=== PATIENT | female | born 1995 | race Caucasian/White ===

== ENCOUNTER 2018-08-24 12:00 | Emergency (ER) | payer OTHER, MEDICAID, SELFPAY ==
[2018-08-24 12:06] VITALS: BP 125/76; PULSE 99; RESP 18; TEMP 36.7; O2SAT 99; BMI 48.6
--- NOTE | 2018-08-24 12:31 | ED.BACK ---
HPI - Back Pain/Injury <Latrice Lopez, [employer]PER[employer]OR-[employer] - Last Filed: 08/24/18 18:49> General Chief Complaint: Back Pain/Injury Stated Complaint: lower back/kidney pain Time Seen by Provider: 08/24/18 12:00 Source: patient and family Mode of arrival: ambulatory Limitations: no limitations History of Present Illness HPI Narrative: the patient is a 23-year-old female with history of rheumatoid arthritis and fibromyalgia who presents with her mother for chief complaint of flank pain x3 days. she states that she has bilateral flank pain, left worse than right. She denies any dysuria urgency or frequency. She denies any abnormal vaginal discharge vaginal bleeding or concern about sexually transmitted infections. She denies any fevers, complains of chills and sweats. She denies any chest pain, shortness of breath. She denies any abdominal pain. she came to the emergency department from the walk-in clinic. She denies any trauma. Her mother notes that she has not been taking her rheumatoid arthritis medications. Related Data Home Medications Medication Instructions Recorded Confirmed Correctol 5 mg PO PRN PRN #0 06/11/17 08/24/18 albuterol sulfate [Ventolin HFA] 2 puff INH PRN PRN #0 06/11/17 08/24/18 clotrimazole 1 gm TOPICAL DIRECTED #0 06/11/17 08/24/18 cyclobenzaprine 5 - 20 mg PO BEDTIME #0 06/11/17 08/24/18 ibuprofen 800 mg PO TIDP PRN #0 06/11/17 08/24/18 norethindrone (contraceptive) 0.35 mg PO QDAY #0 06/11/17 08/24/18 [Nancy-BE] amitriptyline 30 mg PO BEDTIME 08/24/18 08/24/18 atenolol 12.5 mg PO DAILY 08/24/18 08/24/18 fluoxetine 30 mg PO DAILY 08/24/18 08/24/18 fluticasone propionate [Flonase 2 spray INTRANASAL DAILY 08/24/18 08/24/18 Allergy Relief] leflunomide 20 mg PO DAILY 08/24/18 08/24/18 loratadine 10 mg PO DAILY 08/24/18 08/24/18 Previous Rx's Medication Instructions Recorded naratriptan 2.5 mg tablet 2.5 mg PO .COMPLEX PRN #12 tab 08/31/17 ondansetron 4 mg PO BID-TID #10 tab 08/24/18 sulfamethoxazole-trimethoprim 1 tab PO BID 7 Days #14 tab 08/24/18 [Bactrim DS] Allergies Allergy/AdvReac Type Severity Reaction Status Date / Time amoxicillin [AMOXICILLIN] Allergy Mild Verified 08/24/18 12:06 etanercept [ETANERCEPT] Allergy Mild Verified 08/24/18 12:06 tocilizumab [TOCILIZUMAB] Allergy Mild Verified 08/24/18 12:06 potassium [POTASSIUM] Allergy Unknown Verified 08/24/18 12:06 Review of Systems <[facility] - Last Filed: 08/24/18 18:49> Review of Systems GENERAL: see HPI HEENT: Denies sinus pain, ear pain, sore throat, difficulty swallowing, dizziness. RESPIRATORY: Denies dyspnea, cough, wheezing, hemoptysis, sputum. CARDIOVASCULAR: Denies chest pain, palpitations, orthopnea, edema, GASTROINTESTINAL: see HPI : see HPI MUSCULOSKELETAL: denies weakness, joint pain, or bony pain SKIN: Denies rash, skin lesions, or other NEUROLOGIC: Denies weakness, headache, numbness, change in speech, confusion, seizures, incoordination. PSYCHIATRIC: No concerning psychosocial issues. 12 point review of systems is negative except for those stated above PFSH <Latrice Lopez [facility] - Last Filed: 08/24/18 18:49> Social History Smoking Status: Never smoker Social History Smoking Status: Never smoker Exam <Latrice Lopez [facility] - Last Filed: 08/24/18 18:49> Narrative Exam Narrative: GENERAL: obese female lying on stretcher HEAD: Atraumatic. Normocephalic. No temporal or scalp tenderness. EYES: Pupils equal round and reactive. Extraocular motions intact. No scleral icterus. No injection or drainage. ENT: Nose without bleeding, purulent drainage or septal hematoma. Throat without erythema, tonsillar hypertrophy or exudate. Uvula midline. Airway patent. NECK: Trachea midline. No JVD or lymphadenopathy. Supple, nontender, no meningeal signs. CARDIOVASCULAR: Regular rate and rhythm without murmurs, gallops, or rubs. RESPIRATORY: Clear to auscultation. Breath sounds equal bilaterally. No wheezes, rales, or rhonchi. no cough. No increased respiratory effort. GASTROINTESTINAL: Abdomen soft, tender to palpation suprapubic area, bilateral lower quadrants no guarding. nondistended. No hepato-splenomegaly, or palpable masses. No guarding. EXTREMITIES: No clubbing, cyanosis, or edema. No joint tenderness, effusion, or edema noted. BACK: Nontender without deformity or crepitance. CVA tenderness bilaterally NEURO: AOx3. SKIN: No rash or erythema. Initial Vital Signs Initial Vital Signs: Vital Signs Temperature 98.0 F 08/24/18 12:06 Pulse Rate 99 H 08/24/18 12:06 Respiratory Rate 18 08/24/18 12:06 Blood Pressure 125/76 08/24/18 12:06 Pulse Oximetry 99 08/24/18 12:06 <Ventura Rice DO - Last Filed: 08/24/18 19:25> Initial Vital Signs Initial Vital Signs: Vital Signs Temperature 98.0 F 08/24/18 12:06 Pulse Rate 99 H 08/24/18 12:06 Respiratory Rate 18 08/24/18 12:06 Blood Pressure 125/76 08/24/18 12:06 Pulse Oximetry 99 08/24/18 12:06 Course <CHAZ Gonzalez - Last Filed: 08/24/18 18:49> Orders Ordered: ED Orders 08/24/18 13:58 Amylase Stat Complete Blood Count AUTO DIFF Stat Comprehensive Metabolic Panel Stat Lactate (Lactic Acid) Stat Lipase Stat Procalcitonin Stat 08/24/18 14:30 Urine Culture Stat Urine Microscopic Stat 08/24/18 14:49 CT abdomen pelvis w con Stat 08/24/18 15:08 pelvic limited Stat Discontinued Medications Sodium Chloride (Normal Saline 0.9%) 1,000 mls @ 1,000 mls/hr IV BOLUS ONE Stop: 08/24/18 14:37 Last Infusion: 08/24/18 17:26 Dose: 0 mls/hr Admin: 08/24/18 14:11 Dose: 1,000 mls/hr Ketorolac Tromethamine (Toradol) 30 mg IV NOW ONE Stop: 08/24/18 14:19 Last Admin: 08/24/18 14:31 Dose: 30 mg Ondansetron HCl (Zofran) 4 mg IV NOW ONE Stop: 08/24/18 13:58 Last Admin: 08/24/18 14:11 Dose: 4 mg Vital Signs - 8 hr 08/24/18 12:06 08/24/18 13:58 08/24/18 15:06 Temperature 98.0 F Pulse Rate 99 H 97 H 103 H Respiratory Rate 18 18 20 Blood Pressure 125/76 Blood Pressure [Left Wrist] 121/71 132/83 Pulse Oximetry 99 98 98 08/24/18 15:30 08/24/18 16:00 08/24/18 16:42 Temperature 97.2 F L Pulse Rate 64 97 H 95 H Respiratory Rate 18 16 Blood Pressure Blood Pressure [Left Wrist] 202/96 H 122/73 129/73 Pulse Oximetry 98 97 96 <Ventura Rice DO - Last Filed: 08/24/18 19:25> Orders Ordered: ED Orders 08/24/18 13:58 Amylase Stat Complete Blood Count AUTO DIFF Stat Comprehensive Metabolic Panel Stat Lactate (Lactic Acid) Stat Lipase Stat Procalcitonin Stat 08/24/18 14:30 Urine Culture Stat Urine Microscopic Stat 08/24/18 14:49 CT abdomen pelvis w con Stat 08/24/18 15:08 US pelvic limited Stat Discontinued Medications Sodium Chloride (Normal Saline 0.9%) 1,000 mls @ 1,000 mls/hr IV BOLUS ONE Stop: 08/24/18 14:37 Last Infusion: 08/24/18 17:26 Dose: 0 mls/hr Admin: 08/24/18 14:11 Dose: 1,000 mls/hr Ketorolac Tromethamine (Toradol) 30 mg IV NOW ONE Stop: 08/24/18 14:19 Last Admin: 08/24/18 14:31 Dose: 30 mg Ondansetron HCl (Zofran) 4 mg IV NOW ONE Stop: 08/24/18 13:58 Last Admin: 08/24/18 14:11 Dose: 4 mg Vital Signs - 8 hr 08/24/18 12:06 08/24/18 13:58 08/24/18 15:06 Temperature 98.0 F Pulse Rate 99 H 97 H 103 H Respiratory Rate 18 18 20 Blood Pressure 125/76 Blood Pressure [Left Wrist] 121/71 132/83 Pulse Oximetry 99 98 98 08/24/18 15:30 08/24/18 16:00 08/24/18 16:42 Temperature 97.2 F L Pulse Rate 64 97 H 95 H Respiratory Rate 18 16 Blood Pressure Blood Pressure [Left Wrist] 202/96 H 122/73 129/73 Pulse Oximetry 98 97 96 MDM - Back Pain/Injury <Latrice Lopez, [employer]OL ROOM SUPERVISOR[employer] - Last Filed: 08/24/18 18:49> Lab Data Result diagrams: 08/24/18 13:58 08/24/18 13:58 Lab Results 08/24/18 08/24/18 08/24/18 Range/Units 13:58 13:58 13:58 WBC 11.1 H (4.5-11.0) X10^3/uL RBC 5.17 (4.0-5.2) X10^6/uL Hgb 13.6 (12.0-16.0) g/dL Hct 41.0 (36-46) % MCV 79.4 L (80-100) fL MCH 26.3 (26-34) PG MCHC 33.2 (30-36) % RDW 14.9 H (11.6-14.8) % Plt Count 362 (150-400) X10^3/uL Neut % (Auto) 66.5 (50-75) % Lymph % (Auto) 23.1 L (25-40) % [place] % (Auto) 7.0 (3-14) % Eos % (Auto) 2.5 (2-4) % Baso % (Auto) 0.9 (0-2) % Neut # (Auto) 7400 H (1474-1468) /uL Lymph # (Auto) 2600 (5237-7160) /uL [place] # (Auto) 800 (0-900) /uL Eos # (Auto) 300 (0-450) /uL Baso # (Auto) 100 (0-100) /uL Sodium 138 (137-145) mmol/L Potassium 3.8 (3.4-5.1) mmol/L Chloride 102 (98-107) mmol/L Carbon Dioxide 27 (22-32) mmol/L BUN 8 (7-17) mg/dL Creatinine 0.60 (0.52-1.04) mg/dL Estimated GFR > 60.0 (>60) mL/min BUN/Creatinine Ratio 13.3 (6-22) Glucose 83 (70-100) mg/dL Lactate 1.2 (0.7-2.1) mmol/L Calcium 9.4 (8.4-10.2) mg/dL Total Bilirubin 0.3 (0.2-1.3) mg/dL AST 16 (14-36) IU/L ALT 17 (9-52) IU/L Alkaline Phosphatase 116 (38-126) U/L Total Protein 7.2 (6.3-8.2) g/dL Albumin 4.0 (3.5-5.0) g/dL Globulin 3.2 (1.7-4.1) g/dL Albumin/Globulin Ratio 1.3 (1.0-2.8) Amylase (30-110) U/L Lipase (23-300) U/L Procalcitonin (<0.5) ng/mL Urine RBC (0-5/HPF) Urine WBC (0-5/HPF) Ur Squamous Epith Cells (0-5/HPF) Urine Bacteria (None) Ur Culture Indicated? 08/24/18 08/24/18 08/24/18 Range/Units 13:58 13:58 14:30 WBC (4.5-11.0) X10^3/uL RBC (4.0-5.2) X10^6/uL Hgb (12.0-16.0) g/dL Hct (36-46) % MCV (80-100) fL MCH (26-34) PG MCHC (30-36) % RDW (11.6-14.8) % Plt Count (150-400) X10^3/uL Neut % (Auto) (50-75) % Lymph % (Auto) (25-40) % [place] % (Auto) (3-14) % Eos % (Auto) (2-4) % Baso % (Auto) (0-2) % Neut # (Auto) (0206-3310) /uL Lymph # (Auto) (9431-1115) /uL [place] # (Auto) (0-900) /uL Eos # (Auto) (0-450) /uL Baso # (Auto) (0-100) /uL Sodium (137-145) mmol/L Potassium (3.4-5.1) mmol/L Chloride (98-107) mmol/L Carbon Dioxide (22-32) mmol/L BUN (7-17) mg/dL Creatinine (0.52-1.04) mg/dL Estimated GFR (>60) mL/min BUN/Creatinine Ratio (6-22) Glucose (70-100) mg/dL Lactate (0.7-2.1) mmol/L Calcium (8.4-10.2) mg/dL Total Bilirubin (0.2-1.3) mg/dL AST (14-36) IU/L ALT (9-52) IU/L Alkaline Phosphatase (38-126) U/L Total Protein (6.3-8.2) g/dL Albumin (3.5-5.0) g/dL Globulin (1.7-4.1) g/dL Albumin/Globulin Ratio (1.0-2.8) Amylase 85 (30-110) U/L Lipase 173 (23-300) U/L Procalcitonin < 0.05 (<0.5) ng/mL Urine RBC 0-1/hpf (0-5/HPF) Urine WBC 1-5/hpf (0-5/HPF) Ur Squamous Epith Cells 0-1 /hpf (0-5/HPF) Urine Bacteria Moderate (10-30) H (None) Ur Culture Indicated? Specimen cultured Point of Care Testing Test Results Negative Urine Dip Bedside Urine Glucose Negative Bedside Urine Bilirubin - Negative Bedside Urine Ketone - Negative Urine Specific [place] 1.010 Bedside Urine Occult Blood +/- Bedside Urine pH 6.0 Bedside Urine Protein - Negative Bedside Urine Urobilinogen 1+ 2mg Bedside Urine Nitrite - Negative Bedside Urine Leukocytes +/- 15 Esterase Imaging Data pelvic us: Radiologist's impression: [address] [address] Ultrasound Report Signed Patient: Christin Masters LMR#: [id number] : 1995Acct:[id number] Age/Sex: 23 / FDate of Service: 08/24/18 Loc: ED Accession Number: [id number] Procedure: US pelvic limited Ordering Provider: Latrice Lopez- PROCEDURE: US PELVIC LIMITED INDICATIONS: PELVIC PAIN TECHNIQUE: Real-time transabdominal scanning was performed of the pelvic organs, with image documentation. COMPARISON: None. FINDINGS: Study limited due to patient imaging characteristics/body habitus as well as patient declining endovaginal imaging. Uterus: Uterus is normal in size at 6.2 x 3.3 x 3.5 cm. Endometrium measures 4 mm in combined thickness. Ovaries: Bilateral ovaries were not visualized. Other: No free pelvic fluid. Limited scanning through the kidneys shows no hydronephrosis. IMPRESSION: Suboptimal evaluation of the pelvis secondary to patient scanning characteristics and patient declination of the endovaginal component of this examination. The ovaries are not well-visualized. Within these limitations, no acute sonographic abnormalities. Dictated by: Bhaskar Holley M.D. on 08/24/2018 at 16:11 Approved by: Bhaskar Holley M.D. on 08/24/2018 at 16:14 CT scan - abdomen: Radiologist's impression: [place] [address] CT Scan Report Signed Patient: Christin Masters LMR#: [id number] : 1995Acct:[id number] Age/Sex: 23 / FDate of Service: 08/24/18 Loc: ED Accession Number: [id number] Procedure: CT abdomen pelvis w con [facility] CT ABDOMEN PELVIS W CON INDICATIONS: abd pain, flank pain TECHNIQUE: After the administration of intravenous contrast, 5 mm thick sections acquired from the diaphragm to the symphysis. 5 mm coronal and sagittal reformats were acquired. For radiation dose reduction, the following was used: automated exposure control, adjustment of mA and/or kV according to patient size. COMPARISON: [facility], CT, CT ABD PELVIS W CON, 07/02/2015, 2:02. FINDINGS: Image quality: Excellent. ABDOMEN: Lung bases: Lung bases are clear. Heart size is normal. Solid organs: Liver is normal in size and enhancement. Gallbladder is within normal limits. Biliary system is non dilated. Pancreas enhances normally. Spleen is normal in size and enhancement. No adrenal nodules. Kidneys demonstrate normal size and enhancement, without hydronephrosis. Peritoneum and bowel: Bowel loops demonstrate normal wall thickness and caliber. No free fluid or air. The appendix is normal. Nodes and vessels: No retroperitoneal or mesenteric adenopathy by size criteria. Aorta and inferior vena cava are normal in size. Miscellaneous: No ventral hernias. PELVIS: Genitourinary: Bladder wall thickness is normal. Miscellaneous: No inguinal hernias or adenopathy. Bones: No suspicious bony lesions. No vertebral body compression fractures. IMPRESSION: 1. No acute disease process. 2. No free fluid or free air. 3. The appendix is normal. 4. No dilated loops of bowel. Dictated by: Nidhi Mullen MD, PhD on 08/24/2018 at 15:01 Approved by: Nidhi Mullen MD, PhD on 08/24/2018 at 15:04 [facility] Narrative Medical decision making narrative: The patient is a 23-year-old female presents with a chief complaint of flank pain and abdominal pain. She had a negative abdominal CT. Her ultrasound was limited due to r refusal of transvaginal exam. She does have a UTI, which I will initiate treatment with Bactrim. She has a normal lactate and a normal pro calcitonin. I encouraged her to follow up with primary care provider. Urine cultures pending at this time. I gave her prescription of Zofran. Discussed coming back to the ER for any acute concerns such as inability keep down fluids etc. <Ventura Rice, DO - Last Filed: 08/24/18 19:25> Lab Data Lab Results 08/24/18 08/24/18 08/24/18 Range/Units 13:58 13:58 13:58 WBC 11.1 H (4.5-11.0) X10^3/uL RBC 5.17 (4.0-5.2) X10^6/uL Hgb 13.6 (12.0-16.0) g/dL Hct 41.0 (36-46) % MCV 79.4 L (80-100) fL MCH 26.3 (26-34) PG MCHC 33.2 (30-36) % RDW 14.9 H (11.6-14.8) % Plt Count 362 (150-400) X10^3/uL Neut % (Auto) 66.5 (50-75) % Lymph % (Auto) 23.1 L (25-40) % [place] % (Auto) 7.0 (3-14) % Eos % (Auto) 2.5 (2-4) % Baso % (Auto) 0.9 (0-2) % Neut # (Auto) 7400 H (5964-7423) /uL Lymph # (Auto) 2600 (6919-9188) /uL [place] # (Auto) 800 (0-900) /uL Eos # (Auto) 300 (0-450) /uL Baso # (Auto) 100 (0-100) /uL Sodium 138 (137-145) mmol/L Potassium 3.8 (3.4-5.1) mmol/L Chloride 102 (98-107) mmol/L Carbon Dioxide 27 (22-32) mmol/L BUN 8 (7-17) mg/dL Creatinine 0.60 (0.52-1.04) mg/dL Estimated GFR > 60.0 (>60) mL/min BUN/Creatinine Ratio 13.3 (6-22) Glucose 83 (70-100) mg/dL Lactate 1.2 (0.7-2.1) mmol/L Calcium 9.4 (8.4-10.2) mg/dL Total Bilirubin 0.3 (0.2-1.3) mg/dL AST 16 (14-36) IU/L ALT 17 (9-52) IU/L Alkaline Phosphatase 116 (38-126) U/L Total Protein 7.2 (6.3-8.2) g/dL Albumin 4.0 (3.5-5.0) g/dL Globulin 3.2 (1.7-4.1) g/dL Albumin/Globulin Ratio 1.3 (1.0-2.8) Amylase (30-110) U/L Lipase (23-300) U/L Procalcitonin (<0.5) ng/mL Urine RBC (0-5/HPF) Urine WBC (0-5/HPF) Ur Squamous Epith Cells (0-5/HPF) Urine Bacteria (None) Ur Culture Indicated? 08/24/18 08/24/18 08/24/18 Range/Units 13:58 13:58 14:30 WBC (4.5-11.0) X10^3/uL RBC (4.0-5.2) X10^6/uL Hgb (12.0-16.0) g/dL Hct (36-46) % MCV (80-100) fL MCH (26-34) PG MCHC (30-36) % RDW (11.6-14.8) % Plt Count (150-400) X10^3/uL Neut % (Auto) (50-75) % Lymph % (Auto) (25-40) % [place] % (Auto) (3-14) % Eos % (Auto) (2-4) % Baso % (Auto) (0-2) % Neut # (Auto) (2525-8325) /uL Lymph # (Auto) (2729-0667) /uL [place] # (Auto) (0-900) /uL Eos # (Auto) (0-450) /uL Baso # (Auto) (0-100) /uL Sodium (137-145) mmol/L Potassium (3.4-5.1) mmol/L Chloride (98-107) mmol/L Carbon Dioxide (22-32) mmol/L BUN (7-17) mg/dL Creatinine (0.52-1.04) mg/dL Estimated GFR (>60) mL/min BUN/Creatinine Ratio (6-22) Glucose (70-100) mg/dL Lactate (0.7-2.1) mmol/L Calcium (8.4-10.2) mg/dL Total Bilirubin (0.2-1.3) mg/dL AST (14-36) IU/L ALT (9-52) IU/L Alkaline Phosphatase (38-126) U/L Total Protein (6.3-8.2) g/dL Albumin (3.5-5.0) g/dL Globulin (1.7-4.1) g/dL Albumin/Globulin Ratio (1.0-2.8) Amylase 85 (30-110) U/L Lipase 173 (23-300) U/L Procalcitonin < 0.05 (<0.5) ng/mL Urine RBC 0-1/hpf (0-5/HPF) Urine WBC 1-5/hpf (0-5/HPF) Ur Squamous Epith Cells 0-1 /hpf (0-5/HPF) Urine Bacteria Moderate (10-30) H (None) Ur Culture Indicated? Specimen cultured Point of Care Testing Test Results Negative Urine Dip Bedside Urine Glucose Negative Bedside Urine Bilirubin - Negative Bedside Urine Ketone - Negative Urine Specific [place] 1.010 Bedside Urine Occult Blood +/- Bedside Urine pH 6.0 Bedside Urine Protein - Negative Bedside Urine Urobilinogen 1+ 2mg Bedside Urine Nitrite - Negative Bedside Urine Leukocytes +/- 15 Esterase Discharge Plan Departure Patient Disposition: Home Clinical Impression: UTI (urinary tract infection) Qualifiers: Urinary tract infection type: site unspecified Hematuria presence: without hematuria Qualified Code(s): N39.0 - Urinary tract infection, site not specified Discharge Date/Time: 08/24/18 17:20 Interventions: ED Discharge Assessment Last Done: 08/24/18 17:27 Instructions: DI for Urinary Tract Infection (UTI) Activity Restrictions/Additional Instructions: Your testing results showed a urinary tract infection. I have started you on an antibiotic. I have also given you a prescription of nausea medication. Please follow up with primary care provider. Please monitor for fever, inability keep down fluids or acute concerns. Please come back to the emergency department for any acute concerns. Prescriptions: New sulfamethoxazole-trimethoprim [Bactrim DS] 800-160 mg tablet 1 tab PO BID 7 Days Qty: 14 RF: 0 ondansetron 4 mg tablet,disintegrating 4 mg PO BID-TID Qty: 10 RF: 0 No Action albuterol sulfate [Ventolin HFA] 90 MCG/PUFF HFA aerosol inhaler 2 puff INH PRN PRN (Reason: Shortness Of Breath) Qty: 0 RF: 0 clotrimazole 1 % cream 1 gm Topical DIRECTED Qty: 0 RF: 0 Correctol 5 MG tablet 5 mg PO PRN PRN (Reason: Constipation) Qty: 0 RF: 0 cyclobenzaprine 10 MG tablet 5 - 20 mg PO BEDTIME Qty: 0 RF: 0 ibuprofen 800 MG tablet 800 mg PO TIDP PRN (Reason: pain) Qty: 0 RF: 0 norethindrone (contraceptive) [Nancy-BE] 0.35 MG tablet 0.35 mg PO QDAY Qty: 0 RF: 0 naratriptan 2.5 mg tablet 2.5 mg PO .COMPLEX PRN (Reason: migraine headache) Qty: 12 RF: 11 amitriptyline 10 mg Tablet 30 mg PO BEDTIME RF: 0 atenolol 25 mg Tablet 12.5 mg PO DAILY RF: 0 leflunomide 20 mg Tablet 20 mg PO DAILY RF: 0 fluoxetine 10 mg Capsule 30 mg PO DAILY RF: 0 fluticasone propionate [Flonase Allergy Relief] 50 mcg/actuation [place],Suspension 2 spray intranasal DAILY RF: 0 loratadine 10 mg Tablet 10 mg PO DAILY RF: 0 Referrals: Tawana Frankel ARNP [Primary Care Provider] - <Ventura Rice DO - Last Filed: 08/24/18 19:25> Cosign ED Attending Leonelature Attestation: I was immediately available in the department for consultation. Documentation has been reviewed. I agree with assessment and plan.
--- NOTE | 2018-08-24 12:35 | ED_ITS ---
HPI - Back Pain/Injury <Latrice Lopez, CASTING AGENT-BC - Last Filed: 08/24/18 18:49> General Chief Complaint: Back Pain/Injury Stated Complaint: lower back/kidney pain Time Seen by Provider: 08/24/18 12:00 Source: patient and family Mode of arrival: ambulatory Limitations: no limitations History of Present Illness HPI Narrative: the patient is a 23-year-old female with history of rheumatoid arthritis and fibromyalgia who presents with her mother for chief complaint of flank pain x3 days. she states that she has bilateral flank pain, left worse than right. She denies any dysuria urgency or frequency. She denies any abnormal vaginal discharge vaginal bleeding or concern about sexually menjivar smitted infections. She denies any fevers, complains of chills and sweats. She denies any chest pain, shortness of breath. She denies any abdominal pain. she came to the emergency department from the walk-in clinic. She denies any trauma. Her mother notes that she has not been taking her rheumatoid arthritis medications. Related Data Home Medications Medication Instructions Recorded Confirmed Correctol 5 mg PO PRN PRN #0 06/11/17 08/24/18 albuterol sulfate [Ventolin HFA] 2 puff INH PRN PRN #0 06/11/17 08/24/18 clotrimazole 1 gm TOPICAL DIRECTED #0 06/11/17 08/24/18 cyclobenzaprine 5 - 20 mg PO BEDTIME #0 06/11/17 08/24/18 ibuprofen 800 mg PO TIDP PRN #0 06/11/17 08/24/18 norethindrone (contraceptive) 0.35 mg PO QDAY #0 06/11/17 08/24/18 [Nancy-BE] amitriptyline 30 mg PO BEDTIME 08/24/18 08/24/18 atenolol 12.5 mg PO DAILY 08/24/18 08/24/18 fluoxetine 30 mg PO DAILY 08/24/18 08/24/18 fluticasone propionate [Flonase 2 spray INTRANASAL DAILY 08/24/18 08/24/18 Allergy Relief] leflunomide 20 mg PO DAILY 08/24/18 08/24/18 loratadine 10 mg PO DAILY 08/24/18 08/24/18 Previous Rx's Medication Instructions Recorded naratriptan 2.5 mg tablet 2.5 mg PO .COMPLEX PRN #12 tab 08/31/17 ondansetron 4 mg PO BID-TID #10 tab 08/24/18 sulfamethoxazole-trimethoprim 1 tab PO BID 7 Days #14 tab 08/24/18 [Bactrim DS] Allergies Allergy/AdvReac Type Severity Reaction Status Date / Time amoxicillin [AMOXICILLIN] Allergy Mild Verified 08/24/18 12:06 etanercept [ETANERCEPT] Allergy Mild Verified 08/24/18 12:06 tocilizumab [TOCILIZUMAB] Allergy Mild Verified 08/24/18 12:06 potassium [POTASSIUM] Allergy Unknown Verified 08/24/18 12:06 [facility] of Systems [facility] - Last Filed: 08/24/18 18:49> Review of Systems GENERAL: see HPI HEENT: Denies sinus pain, ear pain, sore throat, difficulty swallowing, dizziness. RESPIRATORY: Denies dyspnea, cough, wheezing, hemoptysis, sputum. CARDIOVASCULAR: Denies chest pain, palpitations, orthopnea, edema, GASTROINTESTINAL: see HPI : see HPI MUSCULOSKELETAL: denies weakness, joint pain, or bony pain SKIN: Denies rash, skin lesions, or other NEUROLOGIC: Denies weakness, headache, numbness, change in speech, confusion, seizures, incoordination. PSYCHIATRIC: No concerning psychosocial issues. 12 point review of systems is negative except for those stated above PFSH <[facility] - Last Filed: 08/24/18 18:49> Social History Smoking Status: Never smoker Social History Smoking Status: Never smoker Exam <Latrice Lopez [facility] - Last Filed: 08/24/18 18:49> Narrative Exam Narrative: GENERAL: obese female lying on stretcher HEAD: Atraumatic. Normocephalic. No temporal or scalp tenderness. EYES: Pupils equal round and reactive. Extraocular motions intact. No scleral icterus. No injection or drainage. ENT: Nose without bleeding, purulent drainage or septal hematoma. Throat without erythema, tonsillar hypertrophy or exudate. Uvula midline. Airway patent. NECK: Trachea midline. No JVD or lymphadenopathy. Supple, nontender, no meningeal signs. CARDIOVASCULAR: Regular rate and rhythm without murmurs, gallops, or rubs. RESPIRATORY: Clear to auscultation. Breath sounds equal bilaterally. No wheezes, rales, or rhonchi. no cough. No increased respiratory effort. GASTROINTESTINAL: Abdomen soft, tender to palpation suprapubic area, bilateral lower quadrants no guarding. nondistended. No hepato-splenomegaly, or palpable masses. No guarding. EXTREMITIES: No clubbing, cyanosis, or edema. No joint tenderness, effusion, or edema noted. BACK: Nontender without deformity or crepitance. CVA tenderness bilaterally NEURO: AOx3. SKIN: No rash or erythema. Initial Vital Signs Initial Vital Signs: Vital Signs Temperature 98.0 F 08/24/18 12:06 Pulse Rate 99 H 08/24/18 12:06 Respiratory Rate 18 08/24/18 12:06 Blood Pressure 125/76 08/24/18 12:06 Pulse Oximetry 99 08/24/18 12:06 <Ventura Rice DO - Last Filed: 08/24/18 19:25> Initial Vital Signs Initial Vital Signs: Vital Signs Temperature 98.0 F 08/24/18 12:06 Pulse Rate 99 H 08/24/18 12:06 Respiratory Rate 18 08/24/18 12:06 Blood Pressure 125/76 08/24/18 12:06 Pulse Oximetry 99 08/24/18 12:06 Course <CHAZ Gonzalez - Last Filed: 08/24/18 18:49> Orders Ordered: ED Orders 08/24/18 13:58 Amylase Stat Complete Blood Count AUTO DIFF Stat Comprehensive Metabolic Panel Stat Lactate (Lactic Acid) Stat Lipase Stat Procalcitonin Stat 08/24/18 14:30 Urine Culture Stat Urine Microscopic Stat 08/24/18 14:49 CT abdomen pelvis w con Stat 08/24/18 15:08 pelvic limited Stat Discontinued Medications Sodium Chloride (Normal Saline 0.9%) 1,000 mls @ 1,000 mls/hr IV BOLUS ONE Stop: 08/24/18 14:37 Last Infusion: 08/24/18 17:26 Dose: 0 mls/hr Admin: 08/24/18 14:11 Dose: 1,000 mls/hr Ketorolac Tromethamine (Toradol) 30 mg IV NOW ONE Stop: 08/24/18 14:19 Last Admin: 08/24/18 14:31 Dose: 30 mg Ondansetron HCl (Zofran) 4 mg IV NOW ONE Stop: 08/24/18 13:58 Last Admin: 08/24/18 14:11 Dose: 4 mg Vital Signs - 8 hr 08/24/18 12:06 08/24/18 13:58 08/24/18 15:06 Temperature 98.0 F Pulse Rate 99 H 97 H 103 H Respiratory Rate 18 18 20 Blood Pressure 125/76 Blood Pressure [Left Wrist] 121/71 132/83 Pulse Oximetry 99 98 98 08/24/18 15:30 08/24/18 16:00 08/24/18 16:42 Temperature 97.2 F L Pulse Rate 64 97 H 95 H Respiratory Rate 18 16 Blood Pressure Blood Pressure [Left Wrist] 202/96 H 122/73 129/73 Pulse Oximetry 98 97 96 <Ventura Rice DO - Last Filed: 08/24/18 19:25> Orders Ordered: ED Orders 08/24/18 13:58 Amylase Stat Complete Blood Count AUTO DIFF Stat Comprehensive Metabolic Panel Stat Lactate (Lactic Acid) Stat Lipase Stat Procalcitonin Stat 08/24/18 14:30 Urine Culture Stat Urine Microscopic Stat 08/24/18 14:49 CT abdomen pelvis w con Stat 08/24/18 15:08 US pelvic limited Stat Discontinued Medications Sodium Chloride (Normal Saline 0.9%) 1,000 mls @ 1,000 mls/hr IV BOLUS ONE Stop: 08/24/18 14:37 Last Infusion: 08/24/18 17:26 Dose: 0 mls/hr Admin: 08/24/18 14:11 Dose: 1,000 mls/hr Ketorolac Tromethamine (Toradol) 30 mg IV NOW ONE Stop: 08/24/18 14:19 Last Admin: 08/24/18 14:31 Dose: 30 mg Ondansetron HCl (Zofran) 4 mg IV NOW ONE Stop: 08/24/18 13:58 Last Admin: 08/24/18 14:11 Dose: 4 mg Vital Signs - 8 hr 08/24/18 12:06 08/24/18 13:58 08/24/18 15:06 Temperature 98.0 F Pulse Rate 99 H 97 H 103 H Respiratory Rate 18 18 20 Blood Pressure 125/76 Blood Pressure [Left Wrist] 121/71 132/83 Pulse Oximetry 99 98 98 08/24/18 15:30 08/24/18 16:00 08/24/18 16:42 Temperature 97.2 F L Pulse Rate 64 97 H 95 H Respiratory Rate 18 16 Blood Pressure Blood Pressure [Left Wrist] 202/96 H 122/73 129/73 Pulse Oximetry 98 97 96 MDM - Back Pain/Injury <Latrice Lopez, CASTING AGENT-BC - Last Filed: 08/24/18 18:49> Lab Data Result diagrams: 08/24/18 13:58 08/24/18 13:58 Lab Results 08/24/18 08/24/18 08/24/18 Range/Units 13:58 13:58 13:58 WBC 11.1 H (4.5-11.0) X10^3/uL RBC 5.17 (4.0-5.2) X10^6/uL Hgb 13.6 (12.0-16.0) g/dL Hct 41.0 (36-46) % MCV 79.4 L (80-100) fL MCH 26.3 (26-34) PG MCHC 33.2 (30-36) % RDW 14.9 H (11.6-14.8) % Plt Count 362 (150-400) X10^3/uL Neut % (Auto) 66.5 (50-75) % Lymph % (Auto) 23.1 L (25-40) % [place] % (Auto) 7.0 (3-14) % Eos % (Auto) 2.5 (2-4) % Baso % (Auto) 0.9 (0-2) % Neut # (Auto) 7400 H (1481-1136) /uL Lymph # (Auto) 2600 (7151-6118) /uL [place] # (Auto) 800 (0-900) /uL Eos # (Auto) 300 (0-450) /uL Baso # (Auto) 100 (0-100) /uL Sodium 138 (137-145) mmol/L Potassium 3.8 (3.4-5.1) mmol/L Chloride 102 (98-107) mmol/L Carbon Dioxide 27 (22-32) mmol/L BUN 8 (7-17) mg/dL Creatinine 0.60 (0.52-1.04) mg/dL Estimated GFR > 60.0 (>60) mL/min BUN/Creatinine Ratio 13.3 (6-22) Glucose 83 (70-100) mg/dL Lactate 1.2 (0.7-2.1) mmol/L Calcium 9.4 (8.4-10.2) mg/dL Total Bilirubin 0.3 (0.2-1.3) mg/dL AST 16 (14-36) IU/L ALT 17 (9-52) IU/L Alkaline Phosphatase 116 (38-126) U/L Total Protein 7.2 (6.3-8.2) g/dL Albumin 4.0 (3.5-5.0) g/dL Globulin 3.2 (1.7-4.1) g/dL Albumin/Globulin Ratio 1.3 (1.0-2.8) Amylase (30-110) U/L Lipase (23-300) U/L Procalcitonin (<0.5) ng/mL Urine RBC (0-5/HPF) Urine WBC (0-5/HPF) Ur Squamous Epith Cells (0-5/HPF) Urine Bacteria (None) Ur Culture Indicated? 08/24/18 08/24/18 08/24/18 Range/Units 13:58 13:58 14:30 WBC (4.5-11.0) X10^3/uL RBC (4.0-5.2) X10^6/uL Hgb (12.0-16.0) g/dL Hct (36-46) % MCV (80-100) fL MCH (26-34) PG MCHC (30-36) % RDW (11.6-14.8) % Plt Count (150-400) X10^3/uL Neut % (Auto) (50-75) % Lymph % (Auto) (25-40) % [place] % (Auto) (3-14) % Eos % (Auto) (2-4) % Baso % (Auto) (0-2) % Neut # (Auto) (6931-4983) /uL Lymph # (Auto) (9866-2499) /uL [place] # (Auto) (0-900) /uL Eos # (Auto) (0-450) /uL Baso # (Auto) (0-100) /uL Sodium (137-145) mmol/L Potassium (3.4-5.1) mmol/L Chloride (98-107) mmol/L Carbon Dioxide (22-32) mmol/L BUN (7-17) mg/dL Creatinine (0.52-1.04) mg/dL Estimated GFR (>60) mL/min BUN/Creatinine Ratio (6-22) Glucose (70-100) mg/dL Lactate (0.7-2.1) mmol/L Calcium (8.4-10.2) mg/dL Total Bilirubin (0.2-1.3) mg/dL AST (14-36) IU/L ALT (9-52) IU/L Alkaline Phosphatase (38-126) U/L Total Protein (6.3-8.2) g/dL Albumin (3.5-5.0) g/dL Globulin (1.7-4.1) g/dL Albumin/Globulin Ratio (1.0-2.8) Amylase 85 (30-110) U/L Lipase 173 (23-300) U/L Procalcitonin < 0.05 (<0.5) ng/mL Urine RBC 0-1/hpf (0-5/HPF) Urine WBC 1-5/hpf (0-5/HPF) Ur Squamous Epith Cells 0-1 /hpf (0-5/HPF) Urine Bacteria Moderate (10-30) H (None) Ur Culture Indicated? Specimen cultured Point of Care Testing Test Results Negative Urine Dip Bedside Urine Glucose Negative Bedside Urine Bilirubin - Negative Bedside Urine Ketone - Negative Urine Specific [place] 1.010 Bedside Urine Occult Blood +/- Bedside Urine pH 6.0 Bedside Urine Protein - Negative Bedside Urine Urobilinogen 1+ 2mg Bedside Urine Nitrite - Negative Bedside Urine Leukocytes +/- 15 Esterase Imaging Data pelvic us: Radiologist's impression: [address] [address] Ultrasound Report Signed Patient: Christin Masters LMR#: [id number] : 1995Acct:[id number] Age/Sex: 23 / FDate of Service: 08/24/18 Loc: ED Accession Number: [id number] Procedure: US pelvic limited Ordering Provider: Latrice Lopez- PROCEDURE: US PELVIC LIMITED INDICATIONS: PELVIC PAIN TECHNIQUE: Real-time transabdominal scanning was performed of the pelvic organs, with image documentation. COMPARISON: None. FINDINGS: Study limited due to patient imaging characteristics/body habitus as well as patient declining endovaginal imaging. Uterus: Uterus is normal in size at 6.2 x 3.3 x 3.5 cm. Endometrium measures 4 mm in combined thickness. Ovaries: Bilateral ovaries were not visualized. Other: No free pelvic fluid. Limited scanning through the kidneys shows no hydronephrosis. IMPRESSION: Suboptimal evaluation of the pelvis secondary to patient scanning characteristics and patient declination of the endovaginal component of this examination. The ovaries are not well-visualized. Within these limitations, no acute sonographic abnormalities. Dictated by: Bhaskar Holley M.D. on 08/24/2018 at 16:11 Approved by: Bhaskar Holley M.D. on 08/24/2018 at 16:14 CT scan - abdomen: Radiologist's impression: [place] [address] CT Scan Report Signed Patient: Christin Masters LMR#: [id number] : 1995Acct:[id number] Age/Sex: 23 / FDate of Service: 08/24/18 Loc: ED Accession Number: [id number] Procedure: CT abdomen pelvis w con Ordering Provider: Latrice Lopez [facility] PROCEDURE: CT ABDOMEN PELVIS W CON INDICATIONS: abd pain, flank pain TECHNIQUE: After the administration of intravenous contrast, 5 mm thick sections acquired from the diaphragm to the symphysis. 5 mm coronal and sagittal reformats were acquired. For radiation dose reduction, the following was used: automated exposure control, adjustment of mA and/or kV according to patient size. COMPARISON: [facility], CT, CT ABD PELVIS W CON, 07/02/2015, 2:02. FINDINGS: Image quality: Excellent. ABDOMEN: Lung bases: Lung bases are clear. Heart size is normal. Solid organs: Liver is normal in size and enhancement. Gallbladder is within normal limits. Biliary system is non dilated. Pancreas enhances normally. Spleen is normal in size and enhancement. No adrenal nodules. Kidneys demonstrate normal size and enhancement, without hydronephrosis. Peritoneum and bowel: Bowel loops demonstrate normal wall thickness and caliber. No free fluid or air. The appendix is normal. Nodes and vessels: No retroperitoneal or mesenteric adenopathy by size criteria. Aorta and inferior vena cava are normal in size. Miscellaneous: No ventral hernias. PELVIS: Genitourinary: Bladder wall thickness is normal. Miscellaneous: No inguinal hernias or adenopathy. Bones: No suspicious bony lesions. No vertebral body compression fractures. IMPRESSION: 1. No acute disease process. 2. No free fluid or free air. 3. The appendix is normal. 4. No dilated loops of bowel. Dictated by: Nidhi Mullen MD, PhD on 08/24/2018 at 15:01 Approved by: Nidhi Mullen MD, PhD on 08/24/2018 at 15:04 [facility] Narrative Medical decision making narrative: The patient is a 23-year-old female presents with a chief complaint of flank pain and abdominal pain. She had a negative abdominal CT. Her ultrasound was limited due to r refusal of transvaginal exam. She does have a UTI, which I will initiate treatment with Bactrim. She has a normal lactate and a normal pro calcitonin. I encouraged her to follow up with primary care provider. Urine cultures pending at this time. I gave her prescription of Zofran. Discussed coming back to the ER for any acute concerns such as inability keep down fluids etc. <Ventura Rice, DO - Last Filed: 08/24/18 19:25> Lab Data Lab Results 08/24/18 08/24/18 08/24/18 Range/Units 13:58 13:58 13:58 WBC 11.1 H (4.5-11.0) X10^3/uL RBC 5.17 (4.0-5.2) X10^6/uL Hgb 13.6 (12.0-16.0) g/dL Hct 41.0 (36-46) % MCV 79.4 L (80-100) fL MCH 26.3 (26-34) PG MCHC 33.2 (30-36) % RDW 14.9 H (11.6-14.8) % Plt Count 362 (150-400) X10^3/uL Neut % (Auto) 66.5 (50-75) % Lymph % (Auto) 23.1 L (25-40) % [place] % (Auto) 7.0 (3-14) % Eos % (Auto) 2.5 (2-4) % Baso % (Auto) 0.9 (0-2) % Neut # (Auto) 7400 H (8174-1704) /uL Lymph # (Auto) 2600 (5011-4808) /uL [place] # (Auto) 800 (0-900) /uL Eos # (Auto) 300 (0-450) /uL Baso # (Auto) 100 (0-100) /uL Sodium 138 (137-145) mmol/L Potassium 3.8 (3.4-5.1) mmol/L Chloride 102 (98-107) mmol/L Carbon Dioxide 27 (22-32) mmol/L BUN 8 (7-17) mg/dL Creatinine 0.60 (0.52-1.04) mg/dL Estimated GFR > 60.0 (>60) mL/min BUN/Creatinine Ratio 13.3 (6-22) Glucose 83 (70-100) mg/dL Lactate 1.2 (0.7-2.1) mmol/L Calcium 9.4 (8.4-10.2) mg/dL Total Bilirubin 0.3 (0.2-1.3) mg/dL AST 16 (14-36) IU/L ALT 17 (9-52) IU/L Alkaline Phosphatase 116 (38-126) U/L Total Protein 7.2 (6.3-8.2) g/dL Albumin 4.0 (3.5-5.0) g/dL Globulin 3.2 (1.7-4.1) g/dL Albumin/Globulin Ratio 1.3 (1.0-2.8) Amylase (30-110) U/L Lipase (23-300) U/L Procalcitonin (<0.5) ng/mL Urine RBC (0-5/HPF) Urine WBC (0-5/HPF) Ur Squamous Epith Cells (0-5/HPF) Urine Bacteria (None) Ur Culture Indicated? 08/24/18 08/24/18 08/24/18 Range/Units 13:58 13:58 14:30 WBC (4.5-11.0) X10^3/uL RBC (4.0-5.2) X10^6/uL Hgb (12.0-16.0) g/dL Hct (36-46) % MCV (80-100) fL MCH (26-34) PG MCHC (30-36) % RDW (11.6-14.8) % Plt Count (150-400) X10^3/uL Neut % (Auto) (50-75) % Lymph % (Auto) (25-40) % [place] % (Auto) (3-14) % Eos % (Auto) (2-4) % Baso % (Auto) (0-2) % Neut # (Auto) (5903-9266) /uL Lymph # (Auto) (2294-3823) /uL [place] # (Auto) (0-900) /uL Eos # (Auto) (0-450) /uL Baso # (Auto) (0-100) /uL Sodium (137-145) mmol/L Potassium (3.4-5.1) mmol/L Chloride (98-107) mmol/L Carbon Dioxide (22-32) mmol/L BUN (7-17) mg/dL Creatinine (0.52-1.04) mg/dL Estimated GFR (>60) mL/min BUN/Creatinine Ratio (6-22) Glucose (70-100) mg/dL Lactate (0.7-2.1) mmol/L Calcium (8.4-10.2) mg/dL Total Bilirubin (0.2-1.3) mg/dL AST (14-36) IU/L ALT (9-52) IU/L Alkaline Phosphatase (38-126) U/L Total Protein (6.3-8.2) g/dL Albumin (3.5-5.0) g/dL Globulin (1.7-4.1) g/dL Albumin/Globulin Ratio (1.0-2.8) Amylase 85 (30-110) U/L Lipase 173 (23-300) U/L Procalcitonin < 0.05 (<0.5) ng/mL Urine RBC 0-1/hpf (0-5/HPF) Urine WBC 1-5/hpf (0-5/HPF) Ur Squamous Epith Cells 0-1 /hpf (0-5/HPF) Urine Bacteria Moderate (10-30) H (None) Ur Culture Indicated? Specimen cultured Point of Care Testing Test Results Negative Urine Dip Bedside Urine Glucose Negative Bedside Urine Bilirubin - Negative Bedside Urine Ketone - Negative Urine Specific [place] 1.010 Bedside Urine Occult Blood +/- Bedside Urine pH 6.0 Bedside Urine Protein - Negative Bedside Urine Urobilinogen 1+ 2mg Bedside Urine Nitrite - Negative Bedside Urine Leukocytes +/- 15 Esterase Discharge Plan Departure Patient Disposition: Home Clinical Impression: UTI (urinary tract infection) Qualifiers: Urinary tract infection type: site unspecified Hematuria presence: without hematuria Qualified Code(s): N39.0 - Urinary tract infection, site not specified Discharge Date/Time: 08/24/18 17:20 Interventions: ED Discharge Assessment Last Done: 08/24/18 17:27 Instructions: DI for Urinary Tract Infection (UTI) Activity Restrictions/Additional Instructions: Your testing results showed a urinary tract infection. I have started you on an antibiotic. I have also given you a prescription of nausea medication. Please follow up with primary care provider. Please monitor for fever, inability keep down fluids or acute concerns. Please come back to the emergency department for any acute concerns. Prescriptions: New sulfamethoxazole-trimethoprim [Bactrim DS] 800-160 mg tablet 1 tab PO BID 7 Days Qty: 14 RF: 0 ondansetron 4 mg tablet,disintegrating 4 mg PO BID-TID Qty: 10 RF: 0 No Action albuterol sulfate [Ventolin HFA] 90 MCG/PUFF HFA aerosol inhaler 2 puff INH PRN PRN (Reason: Shortness Of Breath) Qty: 0 RF: 0 clotrimazole 1 % cream 1 gm Topical DIRECTED Qty: 0 RF: 0 Correctol 5 MG tablet 5 mg PO PRN PRN (Reason: Constipation) Qty: 0 RF: 0 cyclobenzaprine 10 MG tablet 5 - 20 mg PO BEDTIME Qty: 0 RF: 0 ibuprofen 800 MG tablet 800 mg PO TIDP PRN (Reason: pain) Qty: 0 RF: 0 norethindrone (contraceptive) [Nancy-BE] 0.35 MG tablet 0.35 mg PO QDAY Qty: 0 RF: 0 naratriptan 2.5 mg tablet 2.5 mg PO .COMPLEX PRN (Reason: migraine headache) Qty: 12 RF: 11 amitriptyline 10 mg Tablet 30 mg PO BEDTIME RF: 0 atenolol 25 mg Tablet 12.5 mg PO DAILY RF: 0 leflunomide 20 mg Tablet 20 mg PO DAILY RF: 0 fluoxetine 10 mg Capsule 30 mg PO DAILY RF: 0 fluticasone propionate [Flonase Allergy Relief] 50 mcg/actuation [place],Suspension 2 spray intranasal DAILY RF: 0 loratadine 10 mg Tablet 10 mg PO DAILY RF: 0 Referrals: Tawana Frankel ARNP [Primary Care Provider] - <Ventura Rice DO - Last Filed: 08/24/18 19:25> Cosign ED Attending Cosignature Attestation: I was immediately available in the depa rtment for consultation. Documentation has been reviewed. I agree with assessment and plan.
[2018-08-24 13:58] VITALS: BP 121/71; PULSE 97; RESP 18; O2SAT 98
[2018-08-24 14:02] LABS: Add Manual Diff / Slide Review NO; Basophils Absolute Auto 100 /uL (0-100); Basophils Percent Auto 0.9 % (0-2); Eosinophils Absolute Auto 300 /uL (0-450); Eosinophils Percent Auto 2.5 % (2-4); Hemoglobin 13.6 g/dL (12.0-16.0); Lymphocytes Absolute Auto 2600 /uL (1100-4500); Lymphocytes Percent Auto 23.1 % (25-40); Mean Corpuscular HGB Conc 33.2 % (30-36); Mean Corpuscular Hemoglobin 26.3 PG (26-34); Mean Corpuscular Volume 79.4 fL (80-100); Monocytes Absolute Auto 800 /uL (0-900); Neutrophils Absolute Auto 7400 /uL (1500-7000); Neutrophils Percent Auto 66.5 % (50-75); Platelet Count 362 X10^3/uL (150-400); Red Blood Cell Count 5.17 X10^6/uL (4.0-5.2); Red Cell Distribution Width 14.9 % (11.6-14.8); White Blood Cell Count 11.1 X10^3/uL (4.5-11.0)
[2018-08-24] MEDS: SODIUM CHLORIDE 0.9% 1,000 ML 1000 ML IV (14:11)
[2018-08-24] MEDS: ONDANSETRON 4 MG/2 ML INJ IV (14:11)
[2018-08-24 14:16] LABS: Alanine Aminotransferase 17 IU/L (9-52); Albumin Globulin Ratio 1.3 (1.0-2.8); Alkaline Phosphatase 116 U/L (38-126); Aspartate Aminotransferase 16 IU/L (14-36); BUN Creatinine Ratio 13.3 (6-22); Bilirubin Total 0.3 mg/dL (0.2-1.3); Blood Urea Nitrogen 8 mg/dL (7-17); Calcium 9.4 mg/dL (8.4-10.2); Carbon Dioxide 27 mmol/L (22-32); Chloride 102 mmol/L (98-107); Estimated Glomerular Filt Rate > 60.0 mL/min (>60); Globulin 3.2 g/dL (1.7-4.1); Glucose 83 mg/dL (70-100); HEMOLYSIS < 15 (0-50); Potassium 3.8 mmol/L (3.4-5.1); Sodium 138 mmol/L (137-145); Total Protein 7.2 g/dL (6.3-8.2)
[2018-08-24 14:17] LABS: Amylase 85 U/L (30-110); Lactate (Lactic Acid) 1.2 mmol/L (0.7-2.1); Lipase 173 U/L (23-300)
[2018-08-24] MEDS: KETOROLAC 60 MG/2 ML VIAL 30 MG IV (14:31)
[2018-08-24 14:34] LABS: Procalcitonin < 0.05 ng/mL (<0.5)
[2018-08-24 14:48] LABS: Bacteria Urine Moderate (10-30); Culture Indicated Urine Specimen Cultured; RBC Urine 0-1/HPF (0-5/HPF); Squamous Epithelial Cell Urine 0-1 /HPF (0-5/HPF); WBC Urine 1-5/HPF (0-5/HPF)
--- NOTE | 2018-08-24 14:49 | DI.CT.S_ITS ---
PROCEDURE: CT ABDOMEN PELVIS W CON INDICATIONS: abd pain, flank pain TECHNIQUE: After the administration of intravenous contrast, 5 mm thick sections acquired from the diaphragm to the symphysis. 5 mm coronal and sagittal reformats were acquired. For radiation dose reduction, the following was used: automated exposure control, adjustment of mA and/or kV according to patient size. COMPARISON: [facility], CT, CT ABD PELVIS W CON, 07/02/2015, 2:02. FINDINGS: Image quality: Excellent. ABDOMEN: Lung bases: Lung bases are clear. Heart size is normal. Solid organs: Liver is normal in size and enhancement. Gallbladder is within normal limits. Biliary system is non dilated. Pancreas enhances normally. Spleen is normal in size and enhancement. No adrenal nodules. Kidneys demonstrate normal size and enhancement, without hydronephrosis. Peritoneum and bowel: Bowel loops demonstrate normal wall thickness and caliber. No free fluid or air. The appendix is normal. Nodes and vessels: No retroperitoneal or mesenteric adenopathy by size criteria. Aorta and inferior vena cava are normal in size. Miscellaneous: No ventral hernias. PELVIS: Genitourinary: Bladder wall thickness is normal. Miscellaneous: No inguinal hernias or adenopathy. Bones: No suspicious bony lesions. No vertebral body compression fractures. IMPRESSION: 1. No acute disease process. 2. No free fluid or free air. 3. The appendix is normal. 4. No dilated loops of bowel. Dictated by: Nidhi Mullen MD, PhD on 08/24/2018 at 15:01 Approved by: Nidhi Mullen MD, PhD on 08/24/2018 at 15:04
[2018-08-24 15:06] VITALS: BP 132/83; PULSE 103; RESP 20; O2SAT 98
--- NOTE | 2018-08-24 15:08 | DI.US.S_ITS ---
PROCEDURE: US PELVIC LIMITED INDICATIONS: PELVIC PAIN TECHNIQUE: Real-time transabdominal scanning was performed of the pelvic organs, with image documentation. COMPARISON: None. FINDINGS: Study limited due to patient imaging characteristics/body habitus as well as patient declining endovaginal imaging. Uterus: Uterus is normal in size at 6.2 x 3.3 x 3.5 cm. Endometrium measures 4 mm in combined thickness. Ovaries: Bilateral ovaries were not visualized. Other: No free pelvic fluid. Limited scanning through the kidneys shows no hydronephrosis. IMPRESSION: Suboptimal evaluation of the pelvis secondary to patient scanning characteristics and patient declination of the endovaginal component of this examination. The ovaries are not well-visualized. Within these limitations, no acute sonographic abnormalities. Dictated by: Bhaskar Holley M.D. on 08/24/2018 at 16:11 Approved by: Bhaskar Holley M.D. on 08/24/2018 at 16:14
[2018-08-24 15:30] VITALS: BP 202/96; PULSE 64; O2SAT 98
[2018-08-24 16:00] VITALS: BP 122/73; PULSE 97; RESP 18; O2SAT 97
[2018-08-24 16:42] VITALS: BP 129/73; PULSE 95; RESP 16; TEMP 36.2; O2SAT 96
== END 2018-08-24 17:20 | disposition home or self-care (01) ==
PROVIDERS: Emergency Provider Nurse Practitioner Family; Family Provider Nurse Practitioner Family; PCP Nurse Practitioner Family
DX: N39.0 Urinary tract infection, site not specified (principal)
CPT/HCPCS: 36591; 74177; 76857; 80053; 81003; 81015; 81025; 82150; 83605; 83690; 84145; 85025; 87077; 87086; 96361; 96374; 96375; 99283; 99284; J1885; J2405; Q9967